=== PATIENT | female | born 1990 | race Caucasian/White ===

== ENCOUNTER 2018-02-17 10:16 | Emergency (ER) | payer SELFPAY ==
[~2018-02-17] VITALS: Ht 149.9 cm; Wt 45.4 kg
[2018-02-17 10:22] VITALS: BP_SYST 127
[2018-02-17 10:51] VITALS: BP_SYST 127
== END 2018-02-17 10:51 | disposition home or self-care (01) ==
LOC: SED 10:16
DX: Z02.89 Encounter for other administrative examinations (principal); J45.909 Unspecified asthma, uncomplicated; F17.210 Nicotine dependence, cigarettes, uncomplicated; R03.0 Elevated blood-pressure reading, without diagnosis of hypertension
CPT/HCPCS: 99283